=== PATIENT | female | born 2000 | race Caucasian/White ===

== ENCOUNTER 2025-02-09 20:49 | Emergency (ER) | payer OTHER, SELFPAY ==
[2025-02-09 20:56] VITALS: BP 126/57; PULSE 110; RESP 20; TEMP 36.9; O2SAT 98; BMI 30.9
[2025-02-09 21:03] LABS: Glucose, Whole Blood 158 mg/dL (60-115)
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
[2025-02-09 22:19] VITALS: BP 130/85; PULSE 122; RESP 17; TEMP 36.5; O2SAT 99
[2025-02-09] MEDS: LORazepam 1 MG TABLET PO (23:11)
[2025-02-09 23:20] VITALS: BP 130/85; PULSE 122; RESP 17; TEMP 36.5; O2SAT 99
== END 2025-02-09 23:20 | disposition home or self-care (01) ==
PROVIDERS: Emergency Provider Emergency Medicine
DX: T69.9XXA Effect of reduced temperature, unspecified, initial encounter (principal); X31.XXXA Exposure to excessive natural cold, initial encounter; Y93.16 Activity, rowing, canoeing, kayaking, rafting and tubing; Y92.828 Other wilderness area as the place of occurrence of the external cause; Y99.9 Unspecified external cause status; E11.9 Type 2 diabetes mellitus without complications
CPT/HCPCS: 82947; 99283; 99284